=== PATIENT | male | born 1980 | race Caucasian/White ===

== ENCOUNTER 2021-07-16 07:35 | Emergency (ER) | payer OTHER, BC ==
[~2021-07-16] VITALS: Ht 190.5 cm; Wt 150.6 kg
[2021-07-16 07:35] VITALS: BP 139/76
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
[2021-07-16] MEDS ORDERED: DIPH,PERTUSS(ACELL),TET VAC/PF 0.5 ML SYRINGE. VAX IM ONE (09:00)
== END 2021-07-16 09:05 | disposition home or self-care (01) ==
LOC: ER 07:35
DX: S01.01XA Laceration without foreign body of scalp, initial encounter (principal); I10 Essential (primary) hypertension; V43.52XA Car driver injured in collision with other type car in traffic accident, initial encounter; Y93.89 Activity, other specified; Y92.488 Other paved roadways as the place of occurrence of the external cause; Y99.8 Other external cause status
CPT/HCPCS: 12004; 90471; 90715; 99283-25